=== PATIENT | male | born 1965 | race Caucasian/White ===

== ENCOUNTER 2018-10-10 10:42 | Outpatient (REF) | payer MEDICAID, SELFPAY ==
[2018-10-10 21:06] LABS: Abs Immature Grans 0.01 k/cumm (0.0-0.09); Absolute Basophil Count 0.04 k/cumm (0.0-0.2); Absolute Eosinophil Count 0.13 k/cumm (0.0-0.7); Absolute Lymphocyte Count 0.82 k/cumm (1.2-3.4); Absolute Monocyte Count 0.65 k/cumm (0.11-0.7); Absolute Neutrophil Count 1.98 k/cumm (1.2-6.7); Basophils % 1.1; Eosinophils % 3.6; HCT 39.3 % (40.0-50.0); HGB 12.9 g/dL (13.5-17.5); Immature Grans % 0.3; Lymphocytes % 22.6; Mean Corp. HGB Concentration 32.8 g/dL (32.0-36.0); Mean Corpuscular Hemoglobin 28.1 pg (27.0-33.0); Mean Corpuscular Volume 85.6 fL (80-95); Monocytes % 17.9; Neutrophils % 54.5; RBC 4.59 m/cumm (4.50-6.00); RBC Distribution Width 14.9 % (11.8-14.1); White Blood Cell Count 3.63 k/cumm (4.4-10.8)
[2018-10-10 21:34] LABS: Platelet Count 63 x1000/uL (130-400)
[2018-10-10 21:52] LABS: Hemoglobin A1C 11.7 % (4.5-6.2)
[2018-10-10 22:15] LABS: ALT 63 U/L (12-78); AST 68 U/L (15-37); Albumin 2.8 g/dL (3.4-5.0); Alkaline Phosphatase 144 U/L (46-116); Anion Gap 8.2 mmol/L (3-11); BUN 12 mg/dL (7-18); Bilirubin, Total 1.2 mg/dL (0.2-1.0); CO2 25.8 mmol/L (21.0-32.0); CREATININE 0.95 mg/dL (0.70-1.30); Calcium 9.1 mg/dL (8.5-10.1); Chloride 102 mmol/L (98-107); Cholesterol 251 mg/dL (50-200); Glucose 289 mg/dL (70-100); HDL Cholesterol 47 mg/dL (40-60); LDL CHOLESTEROL 160 mg/dL (<100); Potassium 3.5 mmol/L (3.5-5.1); Sodium 136 mmol/L (136-145); TSH (W/Ref FT4) 0.07 uIU/mL (0.358-3.74); Total Protein 7.7 g/dL (6.4-8.2); Triglyceride 188 mg/dL (30-150)
[2018-10-10 22:38] LABS: FREE T4 1.67 ng/dL (0.76-1.46)
== END 2018-10-10 11:02 ==
LOC: NCHCN 10:42
PROVIDERS: Visit Provider Family Medicine
DX: I10 Essential (primary) hypertension (principal); E11.9 Type 2 diabetes mellitus without complications; E03.9 Hypothyroidism, unspecified; F32.9 Major depressive disorder, single episode, unspecified; N17.9 Acute kidney failure, unspecified; F10.20 Alcohol dependence, uncomplicated
CPT/HCPCS: 80053; 80061; 83721; 83036; 84439; 84443; 85025

== ENCOUNTER 2019-06-16 23:10 | Outpatient (REF) | payer MEDICAID, SELFPAY ==
[2019-06-16 22:04] LABS: HCT 24.9 % (40.0-50.0); Mean Corp. HGB Concentration 27.7 g/dL (32.0-36.0); Mean Corpuscular Hemoglobin 24.7 pg (27.0-33.0); Mean Corpuscular Volume 89.2 fL (80-95); Platelet Count 52 x1000/uL (130-400); RBC 2.79 m/cumm (4.50-6.00); RBC Distribution Width 24.8 % (11.8-14.1); White Blood Cell Count 2.46 k/cumm (4.4-10.8)
[2019-06-16 22:29] LABS: INR 1.4 (0.9-1.1); Prothrombin Time 13.7 sec (9.3-11.0)
[2019-06-16 22:45] LABS: ALT 40 U/L (16-63); AST 68 U/L (15-37); Albumin 2.6 g/dL (3.4-5.0); Alkaline Phosphatase 116 U/L (46-116); Anion Gap 9.6 mmol/L (3-11); BUN 9 mg/dL (7-18); Bilirubin, Total 1.8 mg/dL (0.2-1.0); CO2 23.4 mmol/L (21.0-32.0); CREATININE 1.07 mg/dL (0.70-1.30); Calcium 8.6 mg/dL (8.5-10.1); Calculated LDL 82 mg/dL; Chloride 108 mmol/L (98-107); Cholesterol 139 mg/dL (50-200); Glucose 120 mg/dL (70-100); HDL Cholesterol 32 mg/dL (40-60); Potassium 3.8 mmol/L (3.5-5.1); Sodium 141 mmol/L (136-145); TSH 4.23 uIU/mL (0.36-3.74); Total Protein 6.9 g/dL (6.4-8.2); Triglyceride 125 mg/dL (30-150)
[2019-06-16 23:01] LABS: Hemoglobin A1C 5.4 % (4.5-6.2)
[2019-06-16 23:17] LABS: HGB 6.9 g/dL (13.5-17.5)
== END 2019-06-16 23:30 ==
LOC: NCHCN 23:10
PROVIDERS: Visit Provider Nurse Practitioner Family
DX: E03.9 Hypothyroidism, unspecified (principal); D64.9 Anemia, unspecified; E78.5 Hyperlipidemia, unspecified; E11.40 Type 2 diabetes mellitus with diabetic neuropathy, unspecified; N17.9 Acute kidney failure, unspecified; F10.20 Alcohol dependence, uncomplicated
CPT/HCPCS: 80053; 80061; 85027; 83036; 84443; 85610

== ENCOUNTER 2019-07-09 14:22 | Outpatient (REF) | payer MEDICAID, SELFPAY ==
[2019-07-09 21:35] LABS: HGB 8.5 g/dL (13.5-17.5); Mean Corp. HGB Concentration 29.3 g/dL (32.0-36.0); Mean Corpuscular Hemoglobin 24.4 pg (27.0-33.0); Mean Corpuscular Volume 83.3 fL (80-95); RBC 3.48 m/cumm (4.50-6.00); RBC Distribution Width 18.7 % (11.8-14.1); White Blood Cell Count 3.79 k/cumm (4.4-10.8)
[2019-07-09 21:50] LABS: INR 1.3 (0.9-1.1); Prothrombin Time 13.3 sec (9.3-11.0)
[2019-07-09 21:54] LABS: ALT 35 U/L (16-63); AST 73 U/L (15-37); Albumin 2.5 g/dL (3.4-5.0); Alkaline Phosphatase 115 U/L (46-116); Anion Gap 9.6 mmol/L (3-11); BUN 7 mg/dL (7-18); Bilirubin, Total 2.4 mg/dL (0.2-1.0); CO2 24.4 mmol/L (21.0-32.0); CREATININE 1.01 mg/dL (0.70-1.30); Chloride 108 mmol/L (98-107); Glucose 168 mg/dL (70-100); Potassium 3.8 mmol/L (3.5-5.1); Sodium 142 mmol/L (136-145); Total Protein 7.2 g/dL (6.4-8.2)
[2019-07-09 22:08] LABS: Platelet Count 53 x1000/uL (130-400)
== END 2019-07-09 14:42 ==
LOC: NCHCN 14:22
PROVIDERS: Visit Provider Nurse Practitioner Family
DX: D64.9 Anemia, unspecified (principal); K70.30 Alcoholic cirrhosis of liver without ascites; I10 Essential (primary) hypertension
CPT/HCPCS: 80053; 85027; 85610

== ENCOUNTER 2019-07-14 14:27 | Outpatient (REF) | payer MEDICAID, SELFPAY | END 2019-07-14 14:47 | LOC: NCHCN 14:27 | PROVIDERS: Visit Provider Nurse Practitioner Family | DX: K92.2 Gastrointestinal hemorrhage, unspecified (principal); K62.9 Disease of anus and rectum, unspecified; K70.30 Alcoholic cirrhosis of liver without ascites | CPT/HCPCS: 83630; 87324 ==

== ENCOUNTER 2019-07-16 18:10 | Outpatient (REF) | payer MEDICAID, SELFPAY ==
[2019-07-16 21:33] LABS: HCT 28.5 % (40.0-50.0); HGB 8.4 g/dL (13.5-17.5); Mean Corp. HGB Concentration 29.5 g/dL (32.0-36.0); Mean Corpuscular Volume 82.4 fL (80-95); RBC 3.46 m/cumm (4.50-6.00); RBC Distribution Width 18.6 % (11.8-14.1); White Blood Cell Count 2.61 k/cumm (4.4-10.8)
[2019-07-16 22:37] LABS: Platelet Count 54 x1000/uL (130-400)
[2019-07-16 22:39] LABS: Mean Corpuscular Hemoglobin 24.3 pg (27.0-33.0)
[2019-07-20 11:38] LABS: Hepatitis B Surface Ag Negative (NEGAT)
[2019-07-20 11:41] LABS: Hepatitis C Ab w Rflx HCV PCR Negative (NEGAT)
[2019-07-20 11:49] LABS: HBs Antibody, Quant <3.1 mIU/mL; Hepatitis B Surface Ab Negative
== END 2019-07-16 18:30 ==
LOC: NCHCN 18:10
PROVIDERS: Visit Provider Nurse Practitioner Family
DX: D64.9 Anemia, unspecified (principal); Z13.818 Encounter for screening for other digestive system disorders
CPT/HCPCS: 85027; 86706; 86803; 87340

== ENCOUNTER 2019-07-23 13:04 | Outpatient (REF) | payer MEDICAID, SELFPAY ==
[2019-07-23 21:57] LABS: Vitamin D 25 Total 27.9 ng/ml (30-100)
[2019-07-24 09:47] LABS: Vitamin B12 1037 pg/mL (193-986)
== END 2019-07-23 13:24 ==
LOC: NCHCN 13:04
PROVIDERS: Visit Provider Nurse Practitioner Family
DX: F32.9 Major depressive disorder, single episode, unspecified (principal)
CPT/HCPCS: 82306; 82607

== ENCOUNTER 2019-08-18 15:36 | Outpatient (REF) | payer MEDICAID, SELFPAY ==
[2019-08-18 21:58] LABS: HCT 27.4 % (40.0-50.0); HGB 8.1 g/dL (13.5-17.5); Mean Corp. HGB Concentration 29.6 g/dL (32.0-36.0); Mean Corpuscular Hemoglobin 24.3 pg (27.0-33.0); RBC 3.34 m/cumm (4.50-6.00); RBC Distribution Width 20.8 % (11.8-14.1); Reticulocyte 2.2 % (0.5-2.4); White Blood Cell Count 3.46 k/cumm (4.4-10.8)
[2019-08-18 22:52] LABS: Platelet Count 52 x1000/uL (130-400)
[2019-08-18 23:08] LABS: TSH 107.99 uIU/mL (0.36-3.74)
== END 2019-08-18 15:56 ==
LOC: NCHCN 15:36
PROVIDERS: Visit Provider Nurse Practitioner Family
DX: I10 Essential (primary) hypertension (principal); E78.5 Hyperlipidemia, unspecified; K70.30 Alcoholic cirrhosis of liver without ascites; E66.01 Morbid (severe) obesity due to excess calories
CPT/HCPCS: 85027; 84443; 85045

== ENCOUNTER 2019-09-25 15:09 | Outpatient (REF) | payer MEDICAID, SELFPAY ==
[2019-09-25 20:45] LABS: Abs Immature Grans 0.01 k/cumm (0.0-0.09); Absolute Basophil Count 0.03 k/cumm (0.0-0.2); Absolute Eosinophil Count 0.13 k/cumm (0.0-0.7); Absolute Lymphocyte Count 0.56 k/cumm (1.2-3.4); Absolute Monocyte Count 0.54 k/cumm (0.11-0.7); Absolute Neutrophil Count 1.79 k/cumm (1.2-6.7); Eosinophils % 4.2; HCT 25.8 % (40.0-50.0); HGB 7.6 g/dL (13.5-17.5); Immature Grans % 0.3; Lymphocytes % 18.3; Mean Corp. HGB Concentration 29.5 g/dL (32.0-36.0); Mean Corpuscular Hemoglobin 25.9 pg (27.0-33.0); Mean Corpuscular Volume 87.8 fL (80-95); Monocytes % 17.6; Neutrophils % 58.6; RBC 2.94 m/cumm (4.50-6.00); RBC Distribution Width 23.4 % (11.8-14.1); White Blood Cell Count 3.06 k/cumm (4.4-10.8)
[2019-09-25 20:52] LABS: Iron 31 ug/dL (65-175); Total Iron Binding Capacity 422 ug/dL (250-450); Transferrin Sat 7 % (20-55)
[2019-09-25 21:00] LABS: Platelet Count 54 x1000/uL (130-400)
[2019-09-25 21:02] LABS: Anisocytosis 2+; Diff Comment PLT Morph Reviewed; Hypochromasia 2+; Macrocytosis 1+; Microcytosis 1+; Polychromasia Present
[2019-09-25 21:03] LABS: Poikilocytes 1+
[2019-09-25 21:08] LABS: ALT 46 U/L (16-63); AST 80 U/L (15-37); Albumin 2.7 g/dL (3.4-5.0); Alkaline Phosphatase 129 U/L (46-116); Anion Gap 10.2 mmol/L (3-11); BUN 11 mg/dL (7-18); Bilirubin, Total 1.5 mg/dL (0.2-1.0); CO2 24.8 mmol/L (21.0-32.0); CREATININE 0.97 mg/dL (0.70-1.30); Calcium 8.4 mg/dL (8.5-10.1); Chloride 103 mmol/L (98-107); Ferritin 44 ng/mL (26-388); Glucose 157 mg/dL (74-106); Potassium 3.9 mmol/L (3.5-5.1); Sodium 138 mmol/L (136-145); TSH 45.73 uIU/mL (0.36-3.74); Total Protein 7.6 g/dL (6.4-8.2)
== END 2019-09-25 15:29 ==
LOC: NCHCN 15:09
PROVIDERS: Visit Provider Nurse Practitioner Family
DX: D64.9 Anemia, unspecified (principal); E11.9 Type 2 diabetes mellitus without complications; E03.9 Hypothyroidism, unspecified; I10 Essential (primary) hypertension; K70.30 Alcoholic cirrhosis of liver without ascites; F10.20 Alcohol dependence, uncomplicated
CPT/HCPCS: 80053; 82728; 83540; 83550; 84443; 85025

== ENCOUNTER 2019-10-07 09:49 | Outpatient (REF) | payer MEDICAID, SELFPAY ==
[2019-10-07 22:41] LABS: HGB 7.2 g/dL (13.5-17.5); Mean Corp. HGB Concentration 28.8 g/dL (32.0-36.0); Mean Corpuscular Hemoglobin 26.8 pg (27.0-33.0); Mean Corpuscular Volume 92.9 fL (80-95); RBC 2.69 m/cumm (4.50-6.00); White Blood Cell Count 3.47 k/cumm (4.4-10.8)
[2019-10-07 23:01] LABS: Platelet Count 52 x1000/uL (130-400)
== END 2019-10-07 10:09 ==
LOC: NCHCN 09:49
PROVIDERS: Visit Provider Nurse Practitioner Family
DX: D50.9 Iron deficiency anemia, unspecified (principal)
CPT/HCPCS: 85027